=== PATIENT | female | born 1960 | race Two or more races ===

== ENCOUNTER 2017-05-24 13:31 | Inpatient (IN) | payer OTHER ==
[~2017-05-24] VITALS: Ht 154.9 cm; Wt 77.8 kg
[2017-05-24 13:58] VITALS: Ht 154.9 cm; Wt 77.8 kg
[2017-05-24 15:32] LABS: BASOPHIL % 0.1 % (0-2); PLATELET COUNT 133 x10^3mcL (130-400)
[2017-05-24 15:33] LABS: RED CELL DISTRIBUTION WIDTH 14.7 % (11.5-14.5)
[2017-05-24] MEDS ORDERED: METOPROLOL (15:38)
[2017-05-24] MEDS ORDERED: GLIPIZIDE10 M2 PO (15:39)
[2017-05-24] MEDS ORDERED: HCTZ (15:39)
[2017-05-24] MEDS ORDERED: NORVASC (15:39)
[2017-05-24] MEDS ORDERED: ASPIRIN (15:41)
[2017-05-24] MEDS ORDERED: BUMEX PO (15:43)
[2017-05-24 15:44] LABS: CK-MB 2.7 ng/mL (0-3.6)
[2017-05-24] MEDS ORDERED: APAP/HYDROCODON1 T15 PO (15:58)
[2017-05-24] MEDS ORDERED: FUROSEMIDE40 MG PO (15:59)
[2017-05-24 16:01] LABS: BILIRUBIN TOTAL 1.5 mg/dL (0.20-1.00); CALCIUM 8.8 mg/dL (8.5-10.1); CARBON DIOXIDE 15.9 mmol/L (21-32); CREATININE SERUM 2.9 mg/dL (0.6-1.0); POTASSIUM SERUM 4.7 mmol/L (3.5-5.1); TOTAL PROTEIN, SERUM 7.9 g/dL (6.4-8.2)
[2017-05-24 16:07] LABS: ALBUMIN 3.1 g/dL (3.4-5.0)
[2017-05-24 17:25] VITALS: BP 157/67
[2017-05-24 17:27] LABS: microscopic required? YES; urine erythrocyte 1+ (NEGATIVE)
[2017-05-24 17:32] VITALS: BP 157/67
[2017-05-24 17:43] LABS: AMPHETAMINE QUAL UR NONE DETECTED (NEG <=1000)
[2017-05-24 17:46] LABS: T3 TOTAL 0.55 ng/mL
[2017-05-24 17:51] LABS: FREE T4 1.86 ng/dL (0.76-1.46); FREE THYROXINE INDEX 4.1 ug/dL (1.4-4.5); T4(THYROXINE) 9.4 ug/dL (4.7-13.3)
[2017-05-24 18:55] LABS: CHOLESTEROL/HDL RATIO 4.7
[2017-05-24] MEDS ORDERED: NOR10 PO (19:15)
[2017-05-24] MEDS ORDERED: LOPRESSOR50 M1 PO (19:15)
[2017-05-24 19:31] LABS: MAGNESIUM 2.2 mg/dL (1.8-2.4)
[2017-05-24 19:43] LABS: PHOSPHOROUS 3.7 mg/dL (2.5-4.9)
[2017-05-24 21:51] VITALS: BP 145/53
[2017-05-25 05:43] VITALS: BP 143/48
[2017-05-25 06:24] LABS: BASOPHIL % 0.8 % (0-2); PLATELET COUNT 139 x10^3mcL (130-400); RED CELL DISTRIBUTION WIDTH 13.6 % (11.5-14.5)
[2017-05-25 07:00] LABS: CALCIUM 8.9 mg/dL (8.5-10.1); CARBON DIOXIDE 20.1 mmol/L (21-32); CREATININE SERUM 2.9 mg/dL (0.6-1.0); MAGNESIUM 2.3 mg/dL (1.8-2.4); PHOSPHOROUS 3.6 mg/dL (2.5-4.9); POTASSIUM SERUM 4.2 mmol/L (3.5-5.1)
[2017-05-25 09:14] VITALS: BP 155/73
[2017-05-25 14:02] VITALS: BP 120/69
[2017-05-25] MEDS ORDERED: BUMETANIDE1 MG (14:41)
[2017-05-25] MEDS ORDERED: GLUCOTROL10 MG PO (14:43)
[2017-05-25 16:25] VITALS: BP 141/66
[2017-05-25 21:15] VITALS: BP 141/51
[2017-05-26 05:59] LABS: BASOPHIL % 0.3 % (0-2); PLATELET COUNT 151 x10^3mcL (130-400)
[2017-05-26 06:02] VITALS: BP 129/66
[2017-05-26 06:16] LABS: CALCIUM 8.6 mg/dL (8.5-10.1); CARBON DIOXIDE 19.9 mmol/L (21-32); POTASSIUM SERUM 4.4 mmol/L (3.5-5.1)
[2017-05-26 06:27] LABS: RED CELL DISTRIBUTION WIDTH 15.1 % (11.5-14.5)
[2017-05-26 08:30] VITALS: BP 156/68
[2017-05-26 11:45] VITALS: BP 122/81
[2017-05-26 15:19] VITALS: BP 144/66
[2017-05-26 18:33] VITALS: BP 137/47
[2017-05-26 20:38] VITALS: BP 162/72
[2017-05-27 05:51] VITALS: BP 120/66
[2017-05-27 06:47] LABS: CALCIUM 8.8 mg/dL (8.5-10.1); CARBON DIOXIDE 18.5 mmol/L (21-32); CREATININE SERUM 2.8 mg/dL (0.6-1.0); MAGNESIUM 2.2 mg/dL (1.8-2.4); PHOSPHOROUS 3.7 mg/dL (2.5-4.9); POTASSIUM SERUM 4.8 mmol/L (3.5-5.1)
[2017-05-27 06:55] LABS: BASOPHIL % 0.2 % (0-2); PLATELET COUNT 172 x10^3mcL (130-400)
[2017-05-27 07:02] LABS: RED CELL DISTRIBUTION WIDTH 14.6 % (11.5-14.5)
[2017-05-27 09:15] VITALS: BP 155/60
[2017-05-27 12:35] VITALS: BP 147/51
[2017-05-27 16:28] LABS: BASOPHIL % 0.1 % (0-2); PLATELET COUNT 172 x10^3mcL (130-400)
[2017-05-27 16:30] LABS: RED CELL DISTRIBUTION WIDTH 14.8 % (11.5-14.5)
[2017-05-27 16:55] VITALS: BP 138/44
[2017-05-27 20:00] VITALS: BP 145/56
[2017-05-27 21:25] VITALS: BP 154/63
[2017-05-28 05:37] VITALS: BP 136/59
[2017-05-28 07:31] LABS: BASOPHIL % 0.1 % (0-2); PLATELET COUNT 172 x10^3mcL (130-400)
[2017-05-28 07:32] LABS: RED CELL DISTRIBUTION WIDTH 15.3 % (11.5-14.5)
[2017-05-28 07:42] LABS: rbc morphology (normal/abnorm) ABNORMAL (NORMAL)
[2017-05-28 07:50] LABS: CALCIUM 8.2 mg/dL (8.5-10.1); CARBON DIOXIDE 19.8 mmol/L (21-32); CREATININE SERUM 2.5 mg/dL (0.6-1.0); MAGNESIUM 2.2 mg/dL (1.8-2.4); PHOSPHOROUS 3.6 mg/dL (2.5-4.9); POTASSIUM SERUM 5.1 mmol/L (3.5-5.1)
[2017-05-28 09:55] VITALS: BP 148/54
[2017-05-28 13:03] VITALS: BP 140/50
[2017-05-28 13:49] LABS: IRON 42 ug/dL (50-170); TOTAL IRON BINDING CAPACITY 176 ug/dL (250-450)
[2017-05-28 13:53] LABS: RED BLOOD CELLS 2.36 M/mm3 (4.10-5.10)
[2017-05-28 16:09] LABS: BASOPHIL % 0.4 % (0-2); PLATELET COUNT 187 x10^3mcL (130-400)
[2017-05-28 17:40] VITALS: BP 153/48
[2017-05-28 18:00] LABS: rbc morphology (normal/abnorm) ABNORMAL (NORMAL)
[2017-05-28 21:39] VITALS: BP 157/56
[2017-05-29] VITALS (7 sets, daily range): BP systolic 125–159; BP diastolic 39–72
[2017-05-29 10:18] LABS: CALCIUM 8.6 mg/dL (8.5-10.1); CREATININE SERUM 2.2 mg/dL (0.6-1.0); MAGNESIUM 2.4 mg/dL (1.8-2.4); PHOSPHOROUS 3.7 mg/dL (2.5-4.9); POTASSIUM SERUM 5.4 mmol/L (3.5-5.1)
[2017-05-29 10:48] LABS: BASOPHIL % 0.5 % (0-2); PLATELET COUNT 206 x10^3mcL (130-400)
[2017-05-29 10:49] LABS: RED CELL DISTRIBUTION WIDTH 15.6 % (11.5-14.5)
[2017-05-29 10:53] LABS: rbc morphology (normal/abnorm) ABNORMAL (NORMAL)
[2017-05-30 06:03] VITALS: BP 152/59
[2017-05-30 09:05] VITALS: BP 155/53
[2017-05-30 12:38] VITALS: BP 145/55
[2017-05-30 17:03] VITALS: BP 129/53
[2017-05-30 19:18] LABS: CALCIUM 8.8 mg/dL (8.5-10.1); CARBON DIOXIDE 20.3 mmol/L (21-32); CREATININE SERUM 2.2 mg/dL (0.6-1.0); POTASSIUM SERUM 5.3 mmol/L (3.5-5.1)
[2017-05-30 20:09] LABS: BASOPHIL % 0.2 % (0-2); PLATELET COUNT 237 x10^3mcL (130-400)
[2017-05-30 20:13] LABS: RED CELL DISTRIBUTION WIDTH 15.5 % (11.5-14.5)
[2017-05-30 21:56] VITALS: BP 152/57
[2017-05-31 06:17] VITALS: BP 119/40
[2017-05-31 07:29] LABS: BASOPHIL % 0.3 % (0-2); PLATELET COUNT 215 x10^3mcL (130-400)
[2017-05-31 07:54] LABS: CALCIUM 8.5 mg/dL (8.5-10.1); CARBON DIOXIDE 20.7 mmol/L (21-32); CREATININE SERUM 2.1 mg/dL (0.6-1.0); MAGNESIUM 2.4 mg/dL (1.8-2.4); PHOSPHOROUS 4.3 mg/dL (2.5-4.9)
[2017-05-31 08:37] LABS: POTASSIUM SERUM 5.6 mmol/L (3.5-5.1)
[2017-05-31 09:23] LABS: RED CELL DISTRIBUTION WIDTH 15.9 % (11.5-14.5)
[2017-05-31 11:29] LABS: rbc morphology (normal/abnorm) ABNORMAL (NORMAL)
[2017-05-31 12:03] VITALS: BP 138/44
[2017-05-31 14:28] VITALS: BP 136/54
[2017-05-31 14:30] LABS: CALCIUM 8.6 mg/dL (8.5-10.1); CARBON DIOXIDE 21.8 mmol/L (21-32); CREATININE SERUM 2.2 mg/dL (0.6-1.0); POTASSIUM SERUM 5.2 mmol/L (3.5-5.1)
[2017-05-31 18:48] VITALS: BP 126/45
[2017-05-31 22:03] VITALS: BP 148/64
[2017-06-01 06:08] VITALS: BP 142/68
[2017-06-01 07:28] LABS: BASOPHIL % 0.3 % (0-2); PLATELET COUNT 209 x10^3mcL (130-400)
[2017-06-01 07:30] LABS: RED CELL DISTRIBUTION WIDTH 16.1 % (11.5-14.5)
[2017-06-01 07:33] LABS: rbc morphology (normal/abnorm) ABNORMAL (NORMAL)
[2017-06-01 07:50] LABS: CALCIUM 8.2 mg/dL (8.5-10.1); CARBON DIOXIDE 20.8 mmol/L (21-32); CREATININE SERUM 2.2 mg/dL (0.6-1.0)
[2017-06-01 07:56] LABS: POTASSIUM SERUM 5.6 mmol/L (3.5-5.1)
[2017-06-01 08:37] LABS: MAGNESIUM 2.2 mg/dL (1.8-2.4); PHOSPHOROUS 4.7 mg/dL (2.5-4.9)
[2017-06-01 09:10] VITALS: BP 121/73
[2017-06-01 09:15] VITALS: BP 83/50
[2017-06-01] MEDS ORDERED: LAC PO (15:13)
[2017-06-01] MEDS ORDERED: LEVAQUIN750 MG PO (15:13)
[2017-06-01] MEDS ORDERED: CLINDAMYCIN HC300 MG PO (15:13)
[2017-06-01] MEDS ORDERED: GOOD SENSE ASPI81 M3 PO (15:13)
[2017-06-01] MEDS ORDERED: LIPI10 PO (15:13)
[2017-06-01] MEDS ORDERED: SODIUM BICARBO650 MG PO (15:34)
[2017-06-01 17:38] VITALS: BP 149/71
[2017-06-01 17:50] VITALS: BP 143/54
[2017-06-01 21:27] LABS: CALCIUM 8.6 mg/dL (8.5-10.1); CARBON DIOXIDE 24.2 mmol/L (21-32); CREATININE SERUM 2.2 mg/dL (0.6-1.0); POTASSIUM SERUM 5.5 mmol/L (3.5-5.1)
[2017-06-01 21:47] VITALS: BP 152/65
== END 2017-06-02 00:48 | DRG 364 ==
LOC: ED 13:31 → DU 16:35 → MU 05-31 22:09
PROVIDERS: Emergency Medicine; Family Medicine; Family Medicine Sports Medicine; Internal Medicine
PROC: 0JBQ0ZZ Excision of Right Foot Subcutaneous Tissue and Fascia, Open Approach (ICD-10-PCS; principal; 2017-05-24)
PROC: 0H9KXZZ Drainage of Right Lower Leg Skin, External Approach (ICD-10-PCS; 2017-05-25)
PROC: 0J9Q0ZZ Drainage of Right Foot Subcutaneous Tissue and Fascia, Open Approach (ICD-10-PCS; 2017-05-26)
DX: E10.621 Type 1 diabetes mellitus with foot ulcer (principal); L97.416 Non-pressure chronic ulcer of right heel and midfoot with bone involvement without evidence of necrosis; N17.0 Acute kidney failure with tubular necrosis; I50.43 Acute on chronic combined systolic (congestive) and diastolic (congestive) heart failure; N18.4 Chronic kidney disease, stage 4 (severe); D68.69 Other thrombophilia; E44.0 Moderate protein-calorie malnutrition; E87.1 Hypo-osmolality and hyponatremia; D62 Acute posthemorrhagic anemia; I13.0 Hypertensive heart and chronic kidney disease with heart failure and stage 1 through stage 4 chronic kidney disease, or unspecified chronic kidney disease; L03.115 Cellulitis of right lower limb; R74.0 Nonspecific elevation of levels of transaminase and lactic acid dehydrogenase [LDH]; R80.9 Proteinuria, unspecified; R31.9 Hematuria, unspecified; E87.5 Hyperkalemia; M94.0 Chondrocostal junction syndrome [Tietze]; K21.9 Gastro-esophageal reflux disease without esophagitis; Z68.30 Body mass index [BMI] 30.0-30.9, adult; Z79.84 Long term (current) use of oral hypoglycemic drugs
CPT/HCPCS: 82962; 83880; 84439; 97110-GP; 97116-GP; 97530-GP; J1815; J1956; J2250; J2405; J2543; J2704; J2916; J3010; J3490; J7030; J7050; J7613; P9016; Q0092; Q0163